=== PATIENT | male | born 2000 | race Caucasian/White ===

== ENCOUNTER 2023-05-09 03:58 | Emergency (ER) | payer OTHER, BC | END 2023-05-09 06:14 | disposition home or self-care (01) | LOC: FB.ED 03:58 | DX: S00.93XA Contusion of unspecified part of head, initial encounter (principal); S06.0X0A Concussion without loss of consciousness, initial encounter; W31.9XXA Contact with unspecified machinery, initial encounter | CPT/HCPCS: 70450; 99283; 99284 ==